=== PATIENT | female | born 1995 | race Caucasian/White ===

== ENCOUNTER 2018-04-02 11:26 | Emergency (ER) | payer OTHER ==
[~2018-04-02] VITALS: Ht 165.1 cm; Wt 113.4 kg
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
--- NOTE | 2018-04-02 12:02 | NUR ---
PT. VERBALIZED UNDERSTANDING OF AFTERCARE INSTRUCTIONS. PT DISCHARGED TO CUSTODY OF [employer] IN STABLE CONDITION. PT ADVISED TO FOLLOW UP WITH PMD
[2018-04-02 12:05] VITALS: BP 156/76
== END 2018-04-02 12:05 | disposition home or self-care (01) ==
LOC: ER 11:31
DX: Z02.89 Encounter for other administrative examinations (principal); R42 Dizziness and giddiness; Z91.040 Latex allergy status; Y04.0XXA Assault by unarmed brawl or fight, initial encounter; Y93.89 Activity, other specified; Y92.89 Other specified places as the place of occurrence of the external cause; Y99.8 Other external cause status
CPT/HCPCS: 99283; A4606; Z7610